=== PATIENT | male | born 1945 | race Caucasian/White ===

== ENCOUNTER 2018-04-30 03:33 | Emergency (ER) | payer MEDICARE ==
[2018-04-30] MEDS: diphenhydrAMINE 50 MG CAP PO (04:45)
[2018-04-30] MEDS: methylPREDNISolone INJ 125 MG/2 ML VIAL (J2930) IM (05:30)
== END 2018-04-30 06:02 | disposition home or self-care (01) ==
LOC: M ED 03:33
DX: R21 Rash and other nonspecific skin eruption (principal); T50.8X5A Adverse effect of diagnostic agents, initial encounter; X58.XXXA Exposure to other specified factors, initial encounter; Y92.89 Other specified places as the place of occurrence of the external cause; I10 Essential (primary) hypertension; E78.5 Hyperlipidemia, unspecified; Z79.899 Other long term (current) drug therapy; Z79.82 Long term (current) use of aspirin; Z88.0 Allergy status to penicillin; Z91.041 Radiographic dye allergy status
CPT/HCPCS: J2930